=== PATIENT | male | born 1965 | race Caucasian/White ===

== ENCOUNTER 2017-07-02 23:15 | Emergency (ER) | payer MEDICARE, OTHER ==
[~2017-07-02] VITALS: Ht 182.9 cm; Wt 107.0 kg
[2017-07-03] MEDS ORDERED: KETOROLAC 60MG/2ML VIAL IM ONE (00:30)
[2017-07-03] MEDS ORDERED: TETANUS, DIPHTHERIA, PERTUSSIS VAC/PF 0.5ML (>7YR OLD) IM ONE (00:45)
[2017-07-03 01:07] VITALS: BP 136/75
[2017-07-03] MEDS ORDERED: SODIUM CHLORIDE 0.9% 1,000 ML IV ONE (01:15)
[2017-07-03 01:43] LABS: BASOPHILS % 0.7 % (0.0-2.0); EOSINOPHILS % 1.8 % (0.0-5.0); HEMATOCRIT. 41.3 % (42.0-52.0); HEMOGLOBIN. 14.3 g/dL (14.0-18.0); LYMPHOCYTES % 26.2 % (20.0-50.0); MEAN CORPUSCULAR HEMOGLOBIN 30.6 pg (28.0-32.0); MONOCYTES % 6.2 % (2.0-8.0); NEUTROPHILS % 65.1 % (40.0-76.0); RED BLOOD CELL COUNT 4.69 mill/uL (4.7-6.1); RED CELL DISTRIBUTION WIDTH 13.1 % (11.6-14.6)
[2017-07-03 01:48] LABS: CHLORIDE 108 mEq/L (98-107)
[2017-07-03 01:53] LABS: CARBON DIOXIDE 25 mEq/L (21-32)
[2017-07-03 02:30] LABS: PLATELET 181 x1000/uL (130-400)
[2017-07-03] MEDS ORDERED: IOHEXOL-300 100 ML BOTTLE ONE (05:03)
== END 2017-07-03 05:50 | disposition home or self-care (01) ==
LOC: ER 23:15
DX: S20.212A Contusion of left front wall of thorax, initial encounter (principal); S90.31XA Contusion of right foot, initial encounter; K21.9 Gastro-esophageal reflux disease without esophagitis; W20.8XXA Other cause of strike by thrown, projected or falling object, initial encounter; Y93.89 Activity, other specified; Y92.89 Other specified places as the place of occurrence of the external cause; Y99.8 Other external cause status
CPT/HCPCS: 36415; 71111; 71260; 73630; 74177; 80048; 85025; 90471; 90715; 96372; 99285; J1885; Q9967; Z7610; J7030